=== PATIENT | female | born 1990 | race Caucasian/White ===

== ENCOUNTER 2024-08-08 06:24 | Inpatient (IN) | payer BC, SELFPAY ==
[2024-08-08] VITALS (76 sets, daily range): BP systolic 90–123; BP diastolic 45–79; PULSE 70–189; RESP 18; TEMP 36.5–37.6; O2SAT 92–100; BMI 29.5
--- NOTE | 2024-08-08 06:24 | LDADM ---
This patient, Abigail Bennett, was admitted to Labor/Delivery/Recovery 108 on 08/08/24 at 06:24. Plans for labor, pain management and were discussed with patient. Patient/family oriented to hospital policies and general routines including ID bracelet, bed and alarms, visiting hours, pain management, procedures, bathroom and other care routines, personal items, smoking policy, room service/diet and guest tray routines, security routines, and visiting hours. Patient/Family are encouraged to report perceived risks to care and to ask questions if they do not understand what they are told or what they should do. See OBIX for further documentation.
--- NOTE | 2024-08-08 06:44 | P.PNAN_ITS ---
Anes - Eval Pre Procedure Procedure: labor epidural Date/Time: 08/08/24 06:44 Surgeon: radha Preop Diagnosis: pain during labor Pre Op Diagnosis: IOL Patient Data Age: 34 Gender: F Height: Weight: Allergies Allergy/AdvReac Type Severity Reaction Status Date / Time No Known Allergies Allergy Verified 07/14/24 13:42 Patient hx anesthesia problems: none Family hx anesthesia problems: none Results Review: All pre-operative results and documents have been reviewed as part of the pre- operative evaluation. PMF Past Medical History Medical History (Updated 08/08/24 @ 06:45 by Gayatri Erickson CRNA) IUP (intrauterine ), incidental Social History Social History Substance use: never Spiritual care concerns: No Exam Day of Procedure 08/08/24 06:44
[2024-08-08 07:03] LABS: Basophils Absolute Auto 0.1 K/mm3 (0.0-0.1); Basophils Percent Auto 0.4 % (0.2-1.2); Eosinophils Absolute Auto 0.1 K/mm3 (0-0.3); Eosinophils Percent Auto 1.1 % (0-4.4); Hemoglobin 12.8 g/dL (12.0-15.0); Immature Granulocyte Absolute 0.21 K/mm3 (0.00-0.031); Immature Granulocyte Percent A 1.7 % (0-0.5); Lymphocytes Percent Auto 20.2 % (18.3-44.2); Mean Corpuscular HGB Conc 33.7 g/dl (32-36); Mean Corpuscular Hemoglobin 31.1 pg (26-34); Mean Corpuscular Volume 92.5 fl (80-100); Mean Platelet Volume 11.5 fl (7.4-10.4); Monocytes Absolute Auto 0.7 K/mm3 (0.1-0.6); Monocytes Percent Auto 5.6 % (2.6-8.5); Neutrophils Absolute Auto 8.8 K/mm3 (1.3-6.7); Platelet Count Result 184 k/mm3 (150-375); Red Blood Count 4.11 M/mm3 (4.2-5.4); Red Cell Distribution Width 14.6 % (11.5-14.5); White Blood Count 12.4 K/mm3 (4.5-10.0)
[2024-08-08] MEDS: LACTATED RINGERS 1,000 ML 125 ML IV CONT ×2 (07:17→11:36)
[2024-08-08] MEDS: AMPICILLIN 2 GM/NS 100 ML 2 GM/100 ML BAG IVPB (07:18)
[2024-08-08] MEDS: OXYTOCIN 30 UNITS/NS 500 ML 30 UNITS/500 ML BAG IV CONT (07:18)
--- NOTE | 2024-08-08 08:02 | WPDOBADMIT ---
Obstetrics - Admit Note Admission Note: record reviewed. No pertinent additions to the history and/or any subsequent changes in the physical findings that are not consistent with the expected course of the were found. Additions to the history and/or subsequent changes in the physical findings follow. IOL, SVE 260/-2 AROM small amount of clear, odorless fluid, anticipate vaginal delivery
[2024-08-08 08:29] LABS: HIV 1/2 Ab P24 Ag Result Negative (Negative)
[2024-08-08 10:06] LABS: Rapid Plasma Reagin Non-Reactive (NonReactive)
[2024-08-08] MEDS: AMPICILLIN 1 GM/NS 50 ML 1 GM/50 ML BAG IVPB (11:36)
--- NOTE | 2024-08-08 14:28 | P.PCNOB_ITS ---
OB - Vaginal Delivery Note Procedure Delivery date: 08/08/24 Induction method: AROM and Per Pitocin Protocol Delivery augmentation: Rupture of Membranes Delivery monitor: None and External FHT Route of delivery: Specimen: No Quantitative Blood Loss (ml): 85 Anesthesia type: Epidural Disposition: Floor Complications: No immediate complications Frederick Baby Date of : 08/08/24 Time of : 14:11 Gestational Age by Date: 39 gender: Female presentation: vertex position: Right Occiput Anterior Placenta delivery description: Spontaneous Cord Vessel Description: 3 Vessels, Nuchal Cord (x1), Delayed Cord Clamping and Around Body (x1) score one minute: 8 score five minutes: 9 Narrative: mother and baby skin to skin in stable condition
[2024-08-08] MEDS: OXYTOCIN 30 UNITS/NS 500 ML 30 UNITS/500 ML BAG 125 UNITS IV CONT (14:35)
--- NOTE | 2024-08-08 16:46 | OBPPTRN ---
Patient transferred to post room #291 via wheelchair. Support person and baby present. Oriented to unit, room, information board, rooming in, admission packet and security measures. Patient verbalizes understanding.
[2024-08-09] MEDS: ACETAMINOPHEN 325 MG TABLET 650 MG PO (03:50)
[2024-08-09 04:00] VITALS: BP 105/73; PULSE 89; RESP 18; TEMP 37.1; O2SAT 100
[2024-08-09 04:29] LABS: Hematocrit 33.6 % (37.0-47.0); Hemoglobin 11.5 g/dL (12.0-15.0)
--- NOTE | 2024-08-09 07:44 | PM.OBPNVD ---
OB - PN: Subj Subjective Date/time seen: 08/09/24 07:44 Interval history: PPD#1 Doing well, pain well controlled Tolerating general diet Voiding without issue Ready for discharge home OB - PN: Obj Data Labs 08/09/24 03:28 Labs: Laboratory Results - last 24 hr 08/08/24 08/09/24 06:40 03:28 Hgb 11.5 L Hct 33.6 L RPR Non-reactive HIV 1&2 Ab/P24 Ag 4thGn Negative Blood Type B Positive Antibody Screen Negative OB - PN A/P Assessment and Plan (1) (spontaneous vaginal delivery): Code(s): O80 - Encounter for full-term uncomplicated delivery Status: Acute Plan day: 1 Plan: routine care, discharge home and follow up 6 weeks Time Spent With Patient Time: Total time spent is greater than 50% in coordination of care (as documented) at patient's floor/unit and/or counseling patient: Review of Systems Review of Systems: All systems reviewed & are unremarkable except as noted in HPI and below Exam Const: General: comfortable and no acute distress Orientation/consciousness: patient oriented x3 Resp: Effort & Inspection: normal respiratory effort
[2024-08-09 07:45] VITALS: BP 107/71; PULSE 63; RESP 16; TEMP 36.6; O2SAT 99
--- NOTE | 2024-08-09 07:49 | PM.OBDSVD ---
DS: Admitting Diagnosis Discharge Date 08/09/24 Admitting Diagnosis induction of labor DS: Discharge Diagnosis Discharge Diagnosis (1) (spontaneous vaginal delivery): Code(s): O80 - Encounter for full-term uncomplicated delivery Status: Acute OB - DS: Summary OB Procedures : None OB Procedures Intrapartum: Spontaneous Vag Delivery OB Procedures: : None Time Spent with Patient Time attestation: Total time spent providing and/or coordinating discharge services: DS: Data Data Completed and Pending Labs on day of discharge: Labs from last 24 hours 08/09/24 08/08/24 03:28 06:40 Hgb 11.5 L Hct 33.6 L RPR Non-reactive HIV 1&2 Ab/P24 Ag 4thGn Negative Blood Type B Positive Antibody Screen Negative Discharge Plan Discharge Attending physician on discharge: Bertin Cabezas Discharging Clinician: Bertin Cabezas Patient Disposition: Home, Self-Care Activity: may shower and as tolerated Diet: as tolerated Patient Instructions: Antibiotic Form Stand Alone Forms: General Discharge Information Follow-up/Referrals: Paula Squires CNM [Certified Nurse Business Machine Operator] - 5 Weeks Discharge Medications: New docusate sodium 100 mg Capsule 100 mg PO BID PRN (Reason: Constipation) Qty: 60 0RF ibuprofen 600 mg Tablet 600 mg PO Q6H PRN (Reason: Cramping) Qty: 30 0RF Continued Classic 28 mg iron- 800 mcg Tablet 1 tablet PO DAILY Date of admission: 08/08/24 06:24 Primary Care Provider: UNKNOWN,DOCTOR Admitting Provider: Andreas Quintanilla Attending physician on admission: Andreas Quintanilla Condition: Stable
[2024-08-09] MEDS: MULTIVIT/MIN/PREN/FOL AC/IRON TABLET 1 TAB PO (08:57)
--- NOTE | 2024-08-09 09:23 | WPDANLDPN2 ---
Anes-Prog Note L&D Date/Time: 08/09/24 09:23 Comfortable throughout: labor and delivery Neuraxial method: epidural Epidural/Spinal procedure site: clean & non-tender Neuro status: Neuro function grossly intact. Cardiovascular status: normal Respiratory status: normal Airway patency: baseline Mental status: baseline Post-Op hydration status: normal Vital Signs: Last Vital Signs Temp 36.6 C 08/09/24 07:45 Pulse 63 08/09/24 07:45 Resp 16 08/09/24 07:45 BP 107/71 08/09/24 07:45 Pulse Ox 99 08/09/24 07:45 O2 Del Method Room Air 08/09/24 08:30 Pain score (VAS): 09/30 I/O: Intake & Output 08/08/24 08/09/24 08/09/24 23:59 07:59 15:59 Output Total 100 Balance -100 Post-procedural complaints: none Patient feedback: Patient satisfied with anesthetic care.
--- NOTE | 2024-08-09 11:55 | PC.NURSE ---
Introductions were made, then consulted with patient to assess needs related to . Discussed with mother her?plans to feed?her and the?experience so far. Resources provided for inpatient and outpatient services with the feeding sheet, mom/baby guide and name written on the communication board. Mother voiced understanding of information and will call if there is a request for assistance. Reported to the Primary RN.
[2024-08-09 12:41] VITALS: BP 102/59; PULSE 63; RESP 16; TEMP 37.2; O2SAT 98
[2024-08-10 09:31] VITALS: BP 116/58; PULSE 68; RESP 18; TEMP 36.8; O2SAT 100
== END 2024-08-09 15:34 | disposition home or self-care (01) | DRG 807 ==
LOC: ANHOB2 08-09 15:02 → ANHLDR 08-10 13:46 → ANHOB2 08-10 13:46
PROVIDERS: Admitting Provider Obstetrics & Gynecology; Referring Provider Advanced Practice Midwife; Visit Provider Obstetrics & Gynecology
DX: O69.81X0 Labor and delivery complicated by cord around neck, without compression, not applicable or unspecified (principal); Z37.0 Single live birth; O99.824 Streptococcus B carrier state complicating childbirth; O69.82X0 Labor and delivery complicated by other cord entanglement, without compression, not applicable or unspecified; Z3A.39 39 weeks gestation of pregnancy
CPT/HCPCS: 36415; 85014; 85018; 85025; 86592; 86703; 86850; 86900; 86901; A9270; G0432; J0290; J2590; J2795; J7120